=== PATIENT | male | born 1990 | race Two or more races ===

== ENCOUNTER 2022-09-03 10:35 | Emergency (ER) | payer MEDICAID, SELFPAY ==
--- NOTE | ~2022-09-03 | US_ITS ---
EXAMINATION: US SCROTUM CLINICAL INFORMATION: Scrotal pain. Question fluid collection. COMPARISON: None TECHNIQUE: A sonogram of the scrotum was performed assessing ledbetter-scale appearance and color Doppler flow. Spectral Doppler analysis of the arterial and venous flow were performed in the testes bilaterally. FINDINGS: RIGHT: Right testicle measures 5.0 x 2.7 x 3.4 cm, volume 24.5 mL. There are echogenic macrocalcifications seen. No focal testicular parenchymal lesions are visualized. Spectral Doppler analysis of the arterial and venous flow is normal in the right testis. Right epididymal head is normal in size. No right hydrocele or varicocele is seen. Right epididymal Doppler flow is normal LEFT: Left testicle measures 4.8 x 2.8 x 3.7 cm, volume 26.1 mL. There are echogenic microcalcifications. No focal testicular parenchymal lesions are visualized. Spectral Doppler analysis of the arterial and venous flow is normal in the left testis. There is echogenic microcalcifications within the scrotum. Left epididymal head is normal in size. No left hydrocele or varicocele is seen. Left epididymal Doppler flow is normal. US/US scrotum IMPRESSION: Echogenic bilateral testicular macrocalcification. Echogenic macrocalcification in the left scrotum adjacent to the testes question dystrophic calcification versus scrotal pole. Normal Doppler flow seen to bilateral testes and epididymis.
[2022-09-03 10:52] VITALS: BP 143/71; PULSE 80; RESP 20; TEMP 36.3; O2SAT 97; BMI 33.7
[2022-09-03 11:36] LABS: MANUAL DIFF FLAG NO
[2022-09-03] MEDS: Morphine Sulfate 4 MG/ML CARTRIDGE IVPUSH (11:36)
[2022-09-03] MEDS: ondansetron HCL 4 MG/2 ML VIAL IVPUSH (11:36)
[2022-09-03] MEDS: 0.9 % Sodium Chloride 1,000 ML 999 ML IV (11:37)
--- NOTE | 2022-09-03 11:39 | PC.NURSE ---
iv inserted, labs drawn, ivf started, pt medicated for pain 10/10 per order.
[2022-09-03 11:46] LABS: COVID-19 Test Positive (Negative); IDNOW Serial# BCCEAD1C
[2022-09-03 11:48] LABS: Basophils Percent Auto 0.4 % (0-2); Eosinophils Absolute Auto 0.1 X10*3/uL (0.0-0.4); Eosinophils Percent Auto 1.2 % (0-4); Hematocrit 39.7 % (42.0-52.0); Imm Gran Abs Auto 0.02 X10*3/uL (0.00-0.03); Imm Gran Pct Auto 0.2 % (0.0-0.4); Lymphocytes Absolute Auto 2.5 X10*3/uL (1.2-4.9); Lymphocytes Percent Auto 25.6 % (20-40); Mean Corpuscular HGB Conc 32.7 g/dl (31.0-36.0); Mean Corpuscular Hemoglobin 28.6 pg (27.0-33.0); Mean Corpuscular Volume 87.3 fL (80.0-98.0); Mean Platelet Volume 10.3 fL (9.4-12.4); Monocytes Absolute Auto 0.5 X10*3/uL (0.1-1.2); Monocytes Percent Auto 5.3 % (2-11); Neutrophils Absolute Auto 6.5 x10*3/uL (2.0-8.3); Neutrophils Percent Auto 67.3 % (45-73); Platelet Count 301 X10*3/uL (160-400); Red Blood Count 4.55 X10*6/uL (4.60-5.80); Red Cell Distribution Width 12.7 % (11.0-16.0); White Blood Count 9.7 X10*3/uL (4.8-10.8)
--- NOTE | 2022-09-03 11:51 | ED_ITS ---
HPI - Male Genitourinary General Chief complaint: Abdominal Pain Stated complaint: Pain from Hernia Time Seen by Provider: 09/03/22 11:03 Source: patient Mode of arrival: ambulatory Limitations: no limitations History of Present Illness HPI Narrative: 32 yo male no sig PMH here with c/o 2 days of scrotal pain after lifting son and a known hernia popped out. He notes he has no fevers, n/v/d and he has had BMs since then. He states 2 years ago the same thing happened and someone at [facility] popped it back in. He is urinating fine. Complaint: testicle pain Onset (ago): day(s) (2) Duration: progressively worsening Location: left testicle Severity: moderate Quality: aching Relieving factors: none Exacerbating factors: palpation and movement Context: other (starting after trying to hold his 75lb child) Associated symptoms: Reports denies other symptoms Related Data Previous Rx's Medication Instructions Recorded cephalexin 500 mg capsule 500 mg PO QID #28 caps 09/03/22 doxycycline hyclate 100 mg capsule 100 mg PO BID 7 days #14 caps 09/03/22 hydrocodone 5 mg-acetaminophen 325 1 tab PO Q6H PRN pain #8 tabs 09/03/22 mg tablet Allergies Allergy/AdvReac Type Severity Reaction Status Date / Time No Known Allergies Allergy Unverified 05/18/20 15:48 [No Known Allergies*] Review of Systems Review of Systems: Constitutional : No Weight loss, No Fever, No Chills ENT/Mouth : No sore throat, No Rhinorrhea Eyes: No Swelling, No Redness Cardiovascular : No Chest Pain, No SOB, NoEdema Respiratory : No Cough, No Sputum, No Wheezing Gastrointestinal : no Nausea, no Vomiting, no Diarrhea,no abdominal Pain, No Hematochezia, No Melena Genitourinary : No Dysuria, No Urinary Frequency, No Hematuria, No Urgency, pos scrotal pain Musculoskeletal : No joint pain, No Myalgias, No Joint Swelling Skin : No Skin Lesions, No rash Neuro : No Weakness, No Numbness, No Dizziness, No Headache Psych : No Anxiety/Panic, No Depression Heme/Lymph: No Bruising, No Lymphadenopathy Endocrine : No Polyuria, No Polydipsia All other systems reviewed and are negative. [facility] Past Medical History Attestation statement: The following information was validated with the patient. Medical History Testicular hernia Social History Social History Alcohol intake: never Smoked in Last 30 Days: No Use of substances other than those prescribed or required for medical reasons: Yes Substance Use Type: Marijuana Substance Use Frequency: Daily Advance Directives: Yes Advance Directives Information Provided: Yes Advance Directives on File: No Physical Exam Vital Signs: Vital Signs: Last Vital Signs Temp 97.4 F 09/03/22 10:52 Pulse 67 09/03/22 13:14 Resp 16 09/03/22 13:14 BP 128/61 09/03/22 13:14 Pulse Ox 96 09/03/22 13:14 O2 Del Method 09/03/22 13:14 BMI result Body Mass Index 33.7 Appearance: Alert. Oriented X3. No acute distress. Eyes: Pupils equal, round and reactive to light. ENT: Pharynx normal. Neck: Normal inspection. Neck supple. CVS: Normal heart rate and rhythm. Pulses normal. Respiratory: No respiratory distress. Breath sounds normal. Abdomen: Soft and nontender. : L scrotum underside near perineum there is a fluctuant area with purulent drainage noted consistent with abscess no sig scrotal thickening or erythema, no crepitus Skin: Skin warm and dry. Normal skin color. Normal skin turgor. Extremities: No lower extremity edema. No calf ttp Neuro: Oriented X 3. No motor deficit. No sensory deficit. Course Course Course Narrative: I+D was performed by Dr. Schaeffer Medications Administered Discontinued Medications Generic Name Dose Route Start Last Admin Trade Name Freq PRN Reason Stop Dose Admin Cephalexin HCl 500 mg 09/03/22 13:14 09/03/22 13:21 Cephalexin 500 Mg Capsule PO 09/03/22 13:15 500 mg ONCE ONE Administration Doxycycline Monohydrate 100 mg 09/03/22 13:14 09/03/22 13:21 Doxycycline Monohydrate 100 Mg Capsule PO 09/03/22 13:15 100 mg ONCE ONE Administration Sodium Chloride 1,000 mls @ 999 mls/hr 09/03/22 11:30 09/03/22 12:38 Ns IV 09/03/22 12:30 Infused .Q1H1M SHOLA Infusion Lidocaine HCl 1 appl 09/03/22 11:43 09/03/22 12:51 Lidocaine 4 % Cream Kit TOPICAL 09/03/22 11:44 1 appl ONCE ONE Administration Protocol Lidocaine HCl 20 ml 09/03/22 13:30 09/03/22 13:55 Lidocaine Hcl 1 % Mpf 30 Ml Vial SUBCUT 09/03/22 13:31 20 ml ONCE ONE Administration Morphine Sulfate 4 mg 09/03/22 11:18 09/03/22 11:36 Morphine Sulfate 4 Mg/Ml Cartridge IVPUSH 09/03/22 11:19 4 mg ONCE ONE Administration Protocol Ondansetron HCl 4 mg 09/03/22 11:18 09/03/22 11:36 Ondansetron Hcl 4 Mg/2 Ml Vial IVPUSH 09/03/22 11:19 4 mg ONCE ONE Administration Medical Decision Making Medical Decision Making [facility] Narrative: 32 yo male hx of testicular hernia comes in with what he thought was hernia but on exam looks like scrotal abscess at this time will need labs, IV Morphine for pain, US to evaluate for depth anticipate I+D in ED, antibiotics. Dispo per results and findings. I have reviewed and interpreted the patient's labs and reviewed and interpreted radiologist readings of studies done in ED today. Differential Diagnosis Differential Diagnoses: The differential diagnosis associated with the presen tation includes hernia, cellulitis, abscess Lab Data [facility] Lab Attestation statement: I reviewed the patient's lab results. Result Diagrams: 09/03/22 11:31 09/03/22 11:31 Labs: Lab Results 09/03/22 09/03/22 09/03/22 Range/Units 11:31 11:31 11:31 WBC 9.7 (4.8-10.8) X10*3/uL RBC 4.55 L (4.60-5.80) X10*6/uL Hgb 13.0 L (14.0-18.0) g/dl Hct 39.7 L (42.0-52.0) % MCV 87.3 (80.0-98.0) fL MCH 28.6 (27.0-33.0) pg MCHC 32.7 (31.0-36.0) g/dl RDW 12.7 (11.0-16.0) % Plt Count 301 (160-400) X10*3/uL MPV 10.3 (9.4-12.4) fL Immature Gran % (Auto) 0.2 (0.0-0.4) % Neut % (Auto) 67.3 (45-73) % Lymph % (Auto) 25.6 (20-40) % Glynn % (Auto) 5.3 (2-11) % Eos % (Auto) 1.2 (0-4) % Baso % (Auto) 0.4 (0-2) % Lymph # (Auto) 2.5 (1.2-4.9) X10*3/uL Glynn # (Auto) 0.5 (0.1-1.2) X10*3/uL Eos # (Auto) 0.1 (0.0-0.4) X10*3/uL Baso # (Auto) 0.0 (0.0-0.2) X10*3/uL Abs Immat Gran (auto) 0.02 (0.00-0.03) X10*3/uL Absolute Neuts (auto) 6.5 (2.0-8.3) x10*3/uL Absolute Nucleated RBC 0.000 (0.0-0.012) X10*3/uL Nucleated RBC % (auto) 0.0 (0.0-0.2) /100WBC Sodium 139 (135-145) mmol/L Potassium 4.3 (3.3-5.1) mmol/L Chloride 106 (96-108) mmol/L Carbon Dioxide 24 (22-29) mmol/L Anion Gap 13 (12-20) BUN 10 (9-16) mg/dL Creatinine 0.75 (0.5-1.4) mg/dL Estim Creat Clear Calc 154.5 Estimated GFR > 60 Random Glucose 100 (60-115) mg/dL Calcium 9.0 (8.4-10.2) mg/dL Total Bilirubin 0.5 (0.0-1.0) mg/dL Direct Bilirubin 0.2 (0.0-0.5) mg/dL AST 20 (5-37) U/L ALT 26 (0-40) U/L Alkaline Phosphatase 50 (39-117) U/L Total Protein 7.5 (6.5-8.0) g/dL Albumin 4.6 (3.5-5.0) g/dL COVID-19 (UNA) Positive A (Negative) COVID-19 Clin Com See Note Independent Interpretation I performed an independent interpretation of an: Ultrasound Radiology Impression Discussion of test interpretation with radiology: I have reviewed the radiologist's reading. External Record Review External record reviewed: Prior outpatient labs Prescription Management I considered prescription management with: Pain Medication and Antibiotic (given abscess will start on dual antibiotics - cephalexin and doxy, as well as motrin and tylenol, sitz baths ) Procedures Abscess I/D Site: scrotum Side (if applicable): left Local Anesthetic: other anesthetic (LMX) Technique: incised with blade Amount of fluid expressed (mL): 5 Sent for culture/gram staining?: No Irrigation: Yes Packing used?: none Discharge Plan Discharge Clinical Impression: Abscess, scrotum Patient Disposition: Home, Self-Care Instructions: Abscess (ED), Abscess Incision and Drainage (DC) Additional Instructions: return to ED for any worsening symptoms or concerns return for worsening swelling and redness/pain, fevers. take antibiotics with food and full stomach - full glass of water. you should take a probiotic while on antibiotics. sitz baths twice a day to keep area soft and draining for 3 days follow up with wound check ED, urgent care or PCP in 2 days if you have concerns. wear supportive underwear Prescriptions: New cephalexin 500 mg capsule 500 mg PO QID Qty: 28 0RF doxycycline hyclate 100 mg capsule 100 mg PO BID 7 Days Qty: 14 0RF hydrocodone-acetaminophen 5-325 mg tablet 1 tab PO Q6H PRN (Reason: pain) Qty: 8 0RF Rx Instructions: partial fill okay; Partial Fill upon patient request. Stand Alone Forms: Work/School Release Interventions: ED Discharge Assessment Last Done: 09/03/22 14:14 Discharge Date/Time: 09/03/22 14:15
[2022-09-03 12:10] LABS: Alanine Aminotransferase 26 U/L (0-40); Albumin Level 4.6 g/dL (3.5-5.0); Alkaline Phosphatase 50 U/L (39-117); Anion Gap 13 (12-20); Aspartate Amino Transferase 20 U/L (5-37); Bilirubin Direct 0.2 mg/dL (0.0-0.5); Bilirubin Total 0.5 mg/dL (0.0-1.0); Blood Urea Nitrogen 10 mg/dL (9-16); Carbon Dioxide 24 mmol/L (22-29); Chloride 106 mmol/L (96-108); Creatinine Clr Calc Pharmacy 154.5; Estimated Glomerular Filt Rate > 60; Glucose Random 100 mg/dL (60-115); Potassium 4.3 mmol/L (3.3-5.1); Sodium 139 mmol/L (135-145); Total Protein 7.5 g/dL (6.5-8.0)
--- NOTE | 2022-09-03 12:20 | PC.NURSE ---
pt to be medicated with lidocaine after us has been completed
[2022-09-03] MEDS: Lidocaine 4 % Cream KIT 1 APPL TOPICAL (12:51)
--- NOTE | 2022-09-03 12:54 | PC.NURSE ---
pt medicated per order
[2022-09-03 13:14] VITALS: BP 128/61; PULSE 67; RESP 16; O2SAT 96
[2022-09-03] MEDS: Doxycycline Monohydrate 100 MG CAPSULE PO (13:21)
[2022-09-03] MEDS: cephALEXin 500 MG CAPSULE PO (13:21)
--- NOTE | 2022-09-03 13:22 | PC.NURSE ---
attempting to call pharmacy for lido, there has been no answer, will attempt again
--- NOTE | 2022-09-03 13:40 | PC.NURSE ---
provider to administer lido
[2022-09-03] MEDS: Lidocaine HCl 1 % MPF 30 ML VIAL 20 ML SUBCUT (13:55)
== END 2022-09-03 14:15 | disposition home or self-care (01) ==
PROVIDERS: Emergency Provider Emergency Medicine
DX: N50.82 Scrotal pain (principal); N49.2 Inflammatory disorders of scrotum
CPT/HCPCS: 54700; 76870; 80048; 80076; 85025; 87635; 96361; 96374; 96375; 99284; J2270; J2405